=== PATIENT | male | born 1955 | race African-American/Black ===

== ENCOUNTER → 2017-04-04 | Outpatient (CLI) | payer OTHER ==
--- NOTE | 2017-04-04 11:50 | RADIOLOGY REPORT (SQ) ---
EXAM DESCRIPTION: MRI HEAD COMBO COMPLETED DATE/TIME: 04/04/2017 11:10 am REASON FOR STUDY: R51 HEADACHE R51 HEADACHE COMPARISON: None. TECHNIQUE: Multiplanar imaging includes noncontrasted T1, T2, FLAIR, diffusion with ADC map and post gadolinium contrast T1 sequences. Images stored on PACS. CONTRAST TYPE AND DOSE: 20 mL Multihance. RENAL FUNCTION: GFR > 60. LIMITATIONS: None. FINDINGS: ANATOMY: No developmental anomalies. Normal vascular flow voids. Pituitary fossa normal. CSF SPACES: Normal in size and contour. No hemorrhage. CEREBRUM: Multiple small foci of increased FLAIR/ T2 signal in the subcortical and deep periventricul ar white matter, likely minimal chronic small vessel ischemic change. Demyelinating disease could [place] this appearance. No MR evidence of acute ischemic change. Acute intracranial hemorrhage, mass effect or midline shift . POSTERIOR FOSSA: No abnormal brain parenchymal signal. No hemorrhage. No edema, masses, or mass effec t. Internal auditory canals, cerebellopontine angles, mastoids normal. No enhancing lesions. No abnor mal enhancement post contrast. DIFFUSION IMAGING: Negative for acute or subacute infarction. ORBITS: No masses. Globes normal. PARANASAL SINUSES: No fluid levels. Mucosa normal. OTHER: No other significant finding. IMPRESSION: Chronic small vessel ischemic change versus old demyelinating disease. No abnormal brain parenchymal enhancement worrisome for brain metastatic disease. No findings worris ome for acute ischemic change. EVIDENCE OF ACUTE STROKE: NO. TECHNICAL DOCUMENTATION: JOB ID: [id number] [employer]- All Rights Reserved
== END ==
LOC: RAD 10:12
PROVIDERS: ATTEND Internal Medicine Medical Oncology
DX: R51 Headache (principal)
CPT/HCPCS: 70553; A9577

== ENCOUNTER → 2017-04-11 | Outpatient (CLI) | payer OTHER ==
--- NOTE | 2017-04-12 16:30 | RADIOLOGY REPORT (SQ) ---
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 RADIONUCLIDE AND DOSE: 10.6 mCi F18 FDG The route of agent administration: Intravenous FASTING BLOOD SUGAR: 106 mg/dl CONTRAST TYPE AND DOSE: No CT contrast given. TECHNIQUE: Blood glucose level was verified. Above dose of FDG was injected intravenously. 2-D seg mented attenuation correction images were obtained from the base of the skull to the midthighs. Nonc ontrast CT images were obtained for attenuation correction and fusion with emission images. CT image s were performed without oral or intravenous contrast and are not sensitive for parenchymal lesions. A series of overlapping emission PET images were obtained. Images reviewed and manipulated at [facility] work station by the radiologist. Images stored on PACS. LIMITATIONS: None. FINDINGS: HEAD AND NECK: No areas of significant abnormal metabolic activity in the soft tissues of the head and neck. CHEST: Hypermetabolic station 7 node measuring 6.6 mean SUV and approximately 2.6 x 2.7 cm in diamete r. Previously reported 8.8 SUV and 2.9 x 1.8 cm. Hypermetabolic station 10 L node measuring 8.4 tiara n SUV and 2.3 cm in diameter, which is contiguous with hypermetabolic left lower lobe mass measuring 8.7 mean SUV and about 3.6 x 4.8 cm in AP by transverse diameter. Previously reported as left hilar node 5.2 SUV and 10 x 7 mm, and left lower lobe mass 12.9 SUV and 4.0 x 3.0 cm. ABDOMEN AND PELVIS: No areas of abnormal metabolic activity in the abdomen or pelvis. Expected physi ologic activity is present in the genitourinary system and bowel. PROXIMAL LOWER EXTREMITIES: No areas of abnormal metabolic activity in the soft tissues of the lower extremities. BONES: No abnormal metabolic activity in the visualized skeleton. ADDITIONAL CT FINDINGS: Hepatic cyst. OTHER: No other significant findings. IMPRESSION: Overall mild progression, although some differences in SUV and measurements may be due t o different hardware and scan technique at different facility. No new areas of hypermetabolic activi ty are identified. TECHNICAL DOCUMENTATION: JOB ID: [id number]- All Rights Reserved
== END ==
LOC: RAD 16:10
PROVIDERS: ATTEND Internal Medicine Medical Oncology
DX: C34.92 Malignant neoplasm of unspecified part of left bronchus or lung (principal)
CPT/HCPCS: 78815; A9552

== ENCOUNTER → 2017-06-20 | Outpatient (CLI) | payer OTHER ==
--- NOTE | 2017-06-20 13:04 | RADIOLOGY REPORT (SQ) ---
EXAM DESCRIPTION: VENOUS UNILATERAL LOWER COMPLETED DATE/TIME: 06/20/2017 12:27 pm REASON FOR STUDY: LLE PAIN M79.606 PAIN IN LEG, UNSPECIFIED COMPARISON: None. TECHNIQUE: Dynamic and static esposito scale and color images acquired of the left leg venous system. Se lected spectral images acquired with additional compression and augmentation maneuvers. The contralat eral common femoral vein and saphenofemoral junction were also imaged. Images stored on PACS. LIMITATIONS: None. FINDINGS: COMMON FEMORAL: Normal phasicity, compression and augmentation. No visualized echogenic ma terial on esposito scale. No defects on color images. FEMORAL: Thrombosis throughout femoral finding. POPLITEAL: Thrombosis. CALF VESSELS: Thrombosis of the posterior tibial, peroneal, and gastrocnemius veins. GSV and SSV: GSV patent. Thrombus in the SSV. ANY DEEP VENOUS INSUFFICIENCY: Not evaluated. ANY EVIDENCE OF POPLITEAL CYST: No. OTHER: No other significant finding. CONTRALATERAL COMMON FEMORAL VEIN AND SAPHENOFEMORAL JUNCTION: Normal phasicity, compression and augmentation. No visualized echogenic material on esposito scale. No de fects on color images. IMPRESSION: DIFFUSE DEEP VENOUS THROMBOSIS THROUGHOUT THE LEFT THIGH, KNEE, AND CALF. COMMENT: Preliminary report was called by the technologist to the referring clinician's office at th e time of patient visit. TECHNICAL DOCUMENTATION: JOB ID: [id number] [employer]- All Rights Reserved Reading location - IP/workstation name: [email or web address]
== END ==
LOC: SP 11:40
PROVIDERS: ATTEND Internal Medicine Medical Oncology
DX: I82.492 Acute embolism and thrombosis of other specified deep vein of left lower extremity (principal); M79.605 Pain in left leg
CPT/HCPCS: 93971

== ENCOUNTER → 2017-08-16 | Outpatient (CLI) | payer OTHER ==
--- NOTE | 2017-08-17 07:31 | RADIOLOGY REPORT (SQ) ---
EXAM DESCRIPTION: MRI LUMBAR SPINE COMBO COMPLETED DATE/TIME: 08/16/2017 9:59 pm REASON FOR STUDY: M79.606 PAIN IN LEG, UNSPECIFIED R53.1 WEAKNESS M79.606 PAIN IN LEG, UNSPECIFIED R53.1 WEAKNESS COMPARISON: PET-CT 04/11/2017 TECHNIQUE: Sagittal and Axial imaging includes T1, T1 post gadolinium, T2, STIR and gradient echo se quences. Coronal T2/HASTE imaging. CONTRAST TYPE AND DOSE: 15 mL Prohance. RENAL FUNCTION: GFR > 60. LIMITATIONS: None. FINDINGS: VISUALIZED UPPER ABDOMEN: The left adrenal gland measures 3.5 cm in length, worrisome for involvement with metastatic disease SEGMENTATION: No transitional anatomy. The lowest well-developed disc space is labeled L5-S1. ALIGNMENT: Minimal grade 1 anterolisthesis of L4 over L5 from bilateral facet arthropathy. VERTEBRAE: No compression deformities BONE MARROW: 1 cm diameter marrow signal abnormalities are scattered throughout the T12, L2, L3, L5, and S1 vertebral bodies worrisome for metastatic disease. No epidural tumor. Small metastatic lesio ns in the bilateral posterior innominate bones. DISC SIGNAL: Decreased T2 weighted intervertebral disc signal at L4-5 and L5-S1 POSTERIOR ELEMENTS: Generally intact. No pars defect evident. HARDWARE: None in the spine. CORD AND CONUS: Normal in size and signal intensity. Conus at the appropriate level. SOFT TISSUES: Left adrenal mass worrisome for metastatic disease T12-L1: No central or foraminal encroachment. L1-L2: Broad diffuse posterior disc bulging is present with moderate bilateral facet and ligament hyp ertrophy. Mild central canal stenosis best shown on axial image 4. Mild bilateral inferior foramina l narrowing. L2-L3: Broad diffuse posterior disc bulging is present with moderate bilateral facet and ligament hyp ertrophy. Mild central canal stenosis. Mild bilateral inferior foraminal narrowing without exiting L2 nerve root impingement. L3-L4: Broad diffuse posterior disc bulging is present with moderate bilateral facet and ligament hyp ertrophy. Mild central canal stenosis. Mild bilateral inferior foraminal narrowing without exiting L3 nerve root impingement. L4-L5: Moderate central canal stenosis results from broad diffuse posterior disc bulging, very bulky bilateral facet and ligament hypertrophy and grade 1 anterolisthesis of L4 over L5. There is mild bi lateral foraminal narrowing without exiting L4 nerve root impingement. L5-S1: Mild diffuse posterior disc bulging, moderate bilateral facet and ligament hypertrophy. No ce ntral stenosis. Moderate bilateral foraminal narrowing without exiting L5 nerve root impingement SACRUM: Visualized upper sacrum intact. ENHANCEMENT: Enhancing vertebral body and sacral/innominate bone lesions are identified. No abnormal conus or lumbar nerve root enhancement. OTHER: No other significant findings. IMPRESSION: Bony metastatic disease Multilevel central canal narrowing in the lumbar spine from diffuse degenerative changes TECHNICAL DOCUMENTATION: JOB ID: [id number] [employer]- All Rights Reserved Reading location - IP/workstation name: [email or web address]
--- NOTE | 2017-08-17 07:40 | RADIOLOGY REPORT (SQ) ---
EXAM DESCRIPTION: MRI PELVIS COMBO COMPLETED DATE/TIME: 08/16/2017 9:59 pm REASON FOR STUDY: M79.606 M79.606 PAIN IN LEG, UNSPECIFIED R53.1 WEAKNESS CONTRAST TYPE AND DOSE: 15 mL Prohance. RENAL FUNCTION: Estimated GFR 52 LIMITATIONS: None. FINDINGS: Bony metastatic lesions are present, with lytic destruction of normal bone with avid contr ast enhancement. The largest of these metastatic lesions is in the posterior and medial aspect left acetabulum, 7 cm craniocaudad by 5 cm transverse by 4 cm AP. This lesion is best shown on coronal ST IR images 11 through 17. Tumor breakthrough along the posterior bony acetabulum is present on axial image 20 through 23. The next largest lytic lesion is in the left innominate bone adjacent to the inferior 3rd SI joint, m easuring 3.5 x 2 cm in size. Other smaller bony metastatic lesions are seen scattered throughout the lower lumbar spine, sacrum, r ight and left innominate bones, bilateral proximal femurs. An enhancing soft tissue 3 x 1.5 cm nodule is present in the left obturator externus muscle best show n on axial image 32 and coronal image 11. This is worrisome for a soft tissue metastatic lesion. No adenopathy. No free pelvic fluid. Pelvic organs unremarkable. IMPRESSION: Multiple enhancing bony metastatic lesions, the largest is in the left posterior and med ial acetabulum, 7 x 5 x 4 cm in size. TECHNICAL DOCUMENTATION: JOB ID: [id number] [employer]- All Rights Reserved COMPARISON: None. MRI lumbar spine without and with contrast same date PET-CT 04/11/2017 TECHNIQUE: Multiplanar multisequence imaging without and with contrast including axial, sagittal and coronal fat sat T2, axial and coronal T1, axial and coronal T1 post contrast. Reading location - IP/workstation name: [email or web address]
== END ==
LOC: RAD 17:52
PROVIDERS: ATTEND Internal Medicine Medical Oncology
DX: M54.9 Dorsalgia, unspecified (principal); R29.898 Other symptoms and signs involving the musculoskeletal system
CPT/HCPCS: 72158; 72197; 82565

== ENCOUNTER → 2017-08-21 | Outpatient (CLI) | payer OTHER ==
--- NOTE | 2017-08-21 16:44 | RADIOLOGY REPORT (SQ) ---
EXAM DESCRIPTION: NM WHOLE BODY BONE SCAN COMPLETED DATE/TIME: 08/21/2017 3:16 pm REASON FOR STUDY: C79.51 SECONDARY MALIGNANT NEOPLASM OF BONE C79.51 SECONDARY MALIGNANT NEOPLASM O F BONE COMPARISON: MR pelvis 08/16/2017 MR lumbar spine 08/16/2017 PET-CT 04/11/2017 RADIONUCLIDE AND DOSE: 20 millicuries Tc99m HDP. The route of agent administration: Intravenous. ADDITIONAL DRUGS AND DOSES: None. TECHNIQUE: Routine delayed images at 3 hours post radionuclide injection acquired of the bony skelet on including anterior and posterior whole-body projections and additional focused images as needed. LIMITATIONS: None. FINDINGS: BONES: Focal increased uptake is seen in the region of the left sacroiliac joint. Focal i ncreased uptake is present in the right patella. Abnormal findings seen on the MRI of the pelvis and MRI of the lumbar spine are not manifest on this scan as increased uptake. KIDNEYS: Symmetric excretion without obstruction. OTHER: No other significant finding. IMPRESSION: A couple small areas of uptake is seen as described. These may be degenerative in natur e. Activity on bone scan does not reflect the disease seen on a prior MRIs from August 16. COMMENT: Quality measure 147: Current bone scan is compared with any available plain radiographs, p rior bone scans, and CT/MRI. TECHNICAL DOCUMENTATION: JOB ID: [id number] [email or web address]- All Rights Reserved Reading location - IP/workstation name: [email or web address]
== END ==
LOC: RAD 10:36
PROVIDERS: ATTEND Radiology Radiation Oncology
DX: C34.32 Malignant neoplasm of lower lobe, left bronchus or lung (principal); C77.1 Secondary and unspecified malignant neoplasm of intrathoracic lymph nodes
CPT/HCPCS: 78306; A9561

== ENCOUNTER 2017-09-18 13:15 | Inpatient (IN) | payer OTHER ==
[2017-09-18] MEDS ORDERED: ONDANSETRON HCL INJ/PF 4 MG/2 ML SDV IV ONE (14:01)
[2017-09-18] MEDS ORDERED: RINGERS SOLUTION,LACTATED 1,000 ML IV ONE (14:03)
[2017-09-18 14:27] LABS: ABSOLUTE LYMPHOCYTES (AUTO) 0.4 10^3/uL (0.5-4.7); ABSOLUTE MONOCYTES (AUTO) 0.1 10^3/uL (0.1-1.4); ABSOLUTE NEUT (AUTO) 7.5 10^3/uL (1.7-8.2); BASOPHILS % (AUTO) 0.1 % (0-2); EOSINOPHILS % (AUTO) 0.3 % (0-6); HEMATOCRIT 29.9 % (37.9-51.0); HEMOGLOBIN 9.9 g/dL (13.5-17.0); LYMPHOCYTES % (AUTO) 5.1 % (13-45); MEAN CORPUSCULAR HEMOGLOBIN 25.4 pg (27.0-33.4); MEAN CORPUSCULAR HGB CONC 33.1 g/dL (32.0-36.0); MEAN CORPUSCULAR VOLUME 77 fl (80-97); PLATELET COUNT 172 10^3/uL (150-450); RED CELL DISTRIBUTION WIDTH 18.7 % (11.5-14.0); SEGMENTED NEUTROPHILS % (AUTO) 93.5 % (42-78); TOTAL CELLS COUNTED % (AUTO) 100 %; WHITE BLOOD COUNT 8.1 10^3/uL (4.0-10.5)
[2017-09-18 14:42] LABS: ALANINE AMINOTRANSFERASE 34 U/L (21-72); ALBUMIN 3.3 g/dL (3.5-5.0); ALKALINE PHOSPHATASE 158 U/L (38-126); ANION GAP 13 (5-19); ASPARTATE AMINO TRANSFERASE 31 U/L (17-59); BILIRUBIN,DIRECT 0.5 mg/dL (0.0-0.4); BILIRUBIN,TOTAL 0.9 mg/dL (0.2-1.3); BLOOD UREA NITROGEN 46 mg/dL (7-20); CALCIUM 8.3 mg/dL (8.4-10.2); CARBON DIOXIDE 18 mmol/L (22-30); CHLORIDE 107 mmol/L (98-107); GLUCOSE 164 mg/dL (75-110); POTASSIUM 5.4 mmol/L (3.6-5.0); SODIUM 138.2 mmol/L (137-145); TOTAL PROTEIN 6.9 g/dL (6.3-8.2)
[2017-09-18 14:51] LABS: INTERNATIONAL RATION (INR) 1.19; PROTHROMBIN TIME 15.8 SEC (11.4-15.4)
--- NOTE | 2017-09-18 15:17 | RADIOLOGY REPORT (SQ) ---
EXAM DESCRIPTION: ACUTE ABDOMEN SERIES COMPLETED DATE/TIME: 09/18/2017 2:49 pm REASON FOR STUDY: Abdominal pain COMPARISON: CT scan 04/11/2017 NUMBER OF VIEWS: Three views. TECHNIQUE: Frontal chest, supine abdomen and upright/decubitus abdomen radiographic images acquired. LIMITATIONS: None. FINDINGS: CHEST: Interval development of a large right effusion and smaller left effusion. Compress rashaun atelectasis at the right base. No free air. FREE AIR: None. No abnormal gas collections. BOWEL GAS PATTERN: Nonobstructive pattern. No dilated loops or air fluid levels. CALCIFICATIONS: No suspicious calcifications. HARDWARE: None in the abdomen. SOFT TISSUES: No gross mass or suggestion of organomegaly. BONES: No acute fracture. No worrisome bone lesions. OTHER: No other significant finding. IMPRESSION: Interval development of a large right effusion and smaller left effusion. Bilateral com pressive atelectasis of the lungs. No radiographic evidence for acute abdominal disease. TECHNICAL DOCUMENTATION: JOB ID: [id number] [employer]- All Rights Reserved Reading location - IP/workstation name: [email or web address]
--- NOTE | 2017-09-18 16:06 | ER Document Report ---
ED General - General Chief Complaint: Loose Stools Stated Complaint: DIARRHEA Time Seen by Provider: 09/18/17 14:00 Mode of Arrival: Ambulatory Information source: Patient Notes: Chief complaint: General malaise 62 years old male presents today with general malaise unable to eat History of complain:( obtained from----patient) anything feeling weak and fatigued, had nausea vomited a couple of times had loose bowel movement a few times. And exertional shortness of breath. He had his chemotherapy done a week ago. Denies any fever chills or other constitutional symptoms Onset: Last few days Duration: Gradual Severity: Moderate to severe Quality: General malaise Context: Status post chemotherapy Exacerbating factor and relieving factors: Exertion REVIEW OF SYSTEMS: CONSTITUTIONAL : Denies fever, chills, or sweats. Denies recent illness. EENT: Denies eye, ear, throat, or mouth pain or symptoms. Denies nasal or sinus congestion or discharge. Denies throat, tongue, or mouth swelling or difficulty swallowing. CARDIOVASCULAR: Denies chest pain. Denies palpitations or racing or irregular heart beat. Denies ankle edema. RESPIRATORY: Denies cough, cold, or chest congestion. GASTROINTESTINAL: Denies distention. Denies nausea, vomiting, or diarrhea. Denies blood in vomitus, stools, or per rectum. Denies black, tarry stools. Denies constipation. GENITOURINARY: Denies difficulty urinating, painful urination, burning, frequency, blood in urine, or discharge. FEMALE GENITOURINARY: Denies vaginal bleeding, heavy or abnormal periods, irregular periods. Denies vaginal discharge or odor. MUSCULOSKELETAL: Denies back or neck pain or stiffness. Denies joint pain or swelling. SKIN: Denies rash, lesions or sores. HEMATOLOGIC : Denies easy bruising or bleeding. LYMPHATIC: Denies swollen, enlarged glands. NEUROLOGICAL: Denies confusion or altered mental status. Denies passing out or loss of consciousness. Denies dizziness or lightheadedness. Denies headache. Denies weakness or paralysis or loss of use of either side. Denies problems with gait or speech. Denies sensory loss, numbness, or tingling. Denies seizures. PSYCHIATRIC: Denies anxiety or stress. Denies depression, suicidal ideation, or homicidal ideation. ALL OTHER SYSTEMS REVIEWED AND NEGATIVE. PHYSICAL EXAMINATION: GENERAL: Well-appearing, well-nourished and in mild to moderate acute distress. Cachexia of malignancy HEAD: Atraumatic, normocephalic. EYES: Pupils equal round and reactive to light, extraocular movements intact, conjunctiva are normal. ENT: Nares patent, oropharynx clear without exudates. Moist mucous membranes. NECK: Normal range of motion, supple without lymphadenopathy LUNGS: Bilaterally decreased breath sounds, right more than the left. Dullness over the lower lung field HEART: Regular rate and rhythm without murmurs ABDOMEN: Soft, nontender, nondistended abdomen. No guarding, no rebound. No masses appreciated. Examination of genitals-deferred Musculoskeletal: Normal range of motion, no pitting or edema. No cyanosis. NEUROLOGICAL: Cranial nerves grossly intact. Normal speech, normal gait. Normal sensory, motor exams PSYCH: Normal mood, normal affect. SKIN: Warm, Dry, normal turgor, no rashes or lesions noted. Dictation was performed using [employer] voice recognition software TRAVEL OUTSIDE OF THE [place] IN LAST 30 DAYS: No - HPI Patient complains to provider of: Dictated Past Medical History - Social History Smoking Status: Former Smoker Cigarette use (# per day): No Chew tobacco use (# tins/day): No Smoking Education Provided: No Frequency of alcohol use: Rare Drug Abuse: None Family History: Reviewed & Not Pertinent Review of Systems - Review of Systems Notes: Dictated Physical Exam - Vital signs Vitals: Resp BP Pulse Ox 34 H 122/81 95 09/18/17 13:25 09/18/17 13:25 09/18/17 13:25 - Notes Notes: Dictated Course - Re-evaluation Re-evalutation: 09/18/17 16:05 Case was discussed with oncologist On-call surgeon Hospitalist and currently being admitted - Vital Signs Vital signs: Temp Pulse Resp BP Pulse Ox 34 H 122/81 95 09/18/17 13:25 09/18/17 13:25 09/18/17 13:25 - Laboratory Result Diagrams: 09/18/17 13:00 09/18/17 13:00 Laboratory results interpreted by me: 09/18/17 09/18/17 09/18/17 13:00 13:00 13:00 RBC 3.90 L Hgb 9.9 L Hct 29.9 L MCV 77 L MCH 25.4 L RDW 18.7 H Seg Neutrophils % 93.5 H Lymphocytes % 5.1 L Monocytes % 1.0 L Absolute Lymphocytes 0.4 L PT 15.8 H Potassium 5.4 H Carbon Dioxide 18 L BUN 46 H Creatinine 1.48 H Est GFR ( Amer) 58 L Est GFR (Non-Af Amer) 48 L Glucose 164 H Calcium 8.3 L Direct Bilirubin 0.5 H Alkaline Phosphatase 158 H Albumin 3.3 L - Diagnostic Test Radiology reviewed: Reports reviewed - Abdominal series reported by radiologist as bilateral pleural effusion right more than the left - EKG Interpretation by Ia EKG shows normal: Sinus rhythm - Electrocardiogram shows sinus rhythm at the rate of 58 bpm APCs, otherwise no acute ST elevation ST depression T-wave inversion noted. Normal axis Discharge - Discharge Clinical Impression: Bilateral pleural effusion, Small cell lung cancer, Dehydration Condition: Fair Disposition: ADMITTED INPATIENT Admitting Provider: Hospitalist Unit Admitted: Telemetry Referrals: ALEXANDER PINTO MD [Primary Care Provider] - Follow up as needed
[2017-09-18] MEDS: NORMAL SALINE 1000 ML 1,000 ML IV PRN ×3 (16:30→22:11)
--- NOTE | 2017-09-18 19:08 | PDOC H&P ---
History of Present Illness Admission Date/PCP: 09/18/17 16:04 Patient complains of: Weakness, anorexia, diarrhea History of Present Illness: STEVAN WHYTE is a 62 year old male with history of lung cancer status post chemotherapy, last dose about a week ago. Patient is also status post radiation therapy. He presented to the ED with about 1 week of malaise, anorexia. He states anything he eats runs through him. He has nausea, but no vomiting. His stools are loose but no blood. Denies sick contacts. Denies abdominal pain. He has also had problems with shortness of breath. Evaluation in the ED significant for acute renal failure, and bilateral pleural effusions worse on the right. ED doctor spoke to patient's oncologist who recommended admission for thoracentesis, further evaluation on Monday. Patient denies chest pain, no fever or chills. Past Medical History Malignancy Medical History: Reports: Lung Cancer Social History Smoking Status: Former Smoker Family History Family History: Reviewed & Not Pertinent Parental Family History Reviewed: Yes Children Family History Reviewed: Yes Sibling(s) Family History Reviewed.: Yes Medication/Allergy Home Medications: Dexamethasone [Decadron 4 Mg Tablet] 4 mg PO TID 09/18/17 Enoxaparin Sodium [Lovenox Inj 100 mg/1 ml Disp.syrin] 100 mg SUBCUT Q12 Folic Acid 0.4 mg PO DAILY 09/18/17 Lorazepam [Ativan 0.5 mg Tablet] 0.5 mg PO Q8HP PRN 09/18/17 Multivitamin [Tab-A-Altaf] 1 each PO DAILY 09/18/17 Omeprazole 40 mg PO DAILY 09/18/17 Ondansetron HCl [Zofran 8 mg Tablet] 8 mg PO Q8 09/18/17 Oxycodone HCl/Acetaminophen [Percocet 10-325 Mg Tablet] 1 each PO Q6HP PRN 09/18 Tramadol HCl [Ultram 50 mg Tablet] 50 mg PO Q8HP PRN 09/18/17 Allergies/Adverse Reactions: No Known Allergies Allergy (Unverified 09/18/17 21:05) Review of Systems Review of Systems: CONSTITUTIONAL : Fever, chills -- No; fatigue -- YES EENT: Denies eye, ear, throat, or mouth pain or symptoms. Denies nasal or sinus congestion or discharge. Denies throat, tongue, or mouth swelling or difficulty swallowing. CARDIOVASCULAR: Denies chest pain. No racing heart RESPIRATORY: Denies cough, HAS shortness of breath, difficulty breathing. GASTROINTESTINAL: Denies abdominal pain or distention. Denies nausea, vomiting , or diarrhea. No rectal bleeding. GENITOURINARY: Urinary symptoms -- no. MUSCULOSKELETAL: Has generalized weakness SKIN: Denies rash, lesions or sores. HEMATOLOGIC : Denies easy bruising or bleeding. LYMPHATIC: Denies swollen, enlarged glands. NEUROLOGICAL: New weakness, headaches, slured speach - No --weaknesses generalized PSYCHIATRIC: Changes anxiety or stress, depression, suicidal ideation, or homicidal ideation -- No ALL OTHER SYSTEMS REVIEWED AND NEGATIVE. Physical Exam Vital Signs: Temp Pulse Resp BP Pulse Ox 34 H 122/81 95 09/18/17 13:25 09/18/17 13:25 09/18/17 13:25 GENERAL: Chronically ill appearing male, in no acute distress HEENT: Normocephalic/atraumatic NECK supple, no JVD CARDIOVASCULAR: RRR, normal S1-S2 LUNGS: Decreased breath sounds bases bilaterally ABDOMEN: Soft, NT, NL bowel sounds EXTREMITIES: No edema, clubbing, cyanosis NEUROLOGICAL: Alert, oriented x 3, no lateralizing weakness Results Impressions: Acute Abdomen Series 09/18/17 14:02 IMPRESSION: Interval development of a large right effusion and smaller left effusion. Bilateral compressive atelectasis of the lungs. No radiographic evidence for acute abdominal disease. Assessment & Plan - Diagnosis (1) Bilateral pleural effusion Is this a current diagnosis for this admission?: Yes Plan: Was on the right. Will obtain CT of the chest to further evaluate. Please consider ultrasound-guided thoracentesis depending on CT results. We will also check echocardiogram to rule out heart failure, especially as patient will receive IV fluids for anorexia and acute kidney injury. (2) ROSETTE (acute kidney injury) Is this a current diagnosis for this admission?: Yes Plan: Likely secondary to dehydration. Will treat with gentle IV fluid with normal saline at 75 mL/h as patient with poor p.o. Monitor closely. (3) Dehydration Is this a current diagnosis for this admission?: Yes Plan: IV fluids as an ROSETTE. (4) Small cell lung cancer Is this a current diagnosis for this admission?: Yes Plan: Consider consulting his oncologist if any issues/concerns. (5) Loose stools Is this a current diagnosis for this admission?: Yes Plan: We will check stool studies for infection, C. difficile - Inpatient Certification Medical Necessity: Significant Comorbidiites Make Outpatient Treatment Too Risky , Need For IV Fluids, Need For Continuous Telemetry Monitoring
[2017-09-18 19:27] LABS: APPEARANCE,URINE SLIGHTLY-CLOUDY; BILIRUBIN,URINE NEGATIVE (NEGATIVE); COLOR,URINE YELLOW; GLUCOSE, URINE NEGATIVE (NEGATIVE); KETONES,URINE NEGATIVE (NEGATIVE); LEUKOCYTE ESTERASE,URINE NEGATIVE (NEGATIVE); NITRITE,URINE NEGATIVE (NEGATIVE); PROTEIN,URINE 30 mg/dL (NEGATIVE)
[2017-09-18] MEDS ORDERED: TRAMADOL HCL 50 MG TABLET PO PRN (21:28)
[2017-09-18] MEDS ORDERED: LORAZEPAM 0.5 MG TABLET PO PRN (21:28)
[2017-09-18] MEDS ORDERED: (PENDING PHARMACY ID) (Enoxaparin Sodium 100 MG) SUBCUT SCH (22:00)
[2017-09-18] MEDS: ENOXAPARIN SODIUM INJ 80 MG/0.8 ML DISP.SYRIN SUBCUT SCH (22:11)
[2017-09-18] MEDS: ONDANSETRON HCL 8 MG TABLET PO SCH (22:11)
[2017-09-18] MEDS ORDERED: OXYCODONE-ACETAMINOPHEN 5-325 MG TABLET PO PRN (22:15)
[2017-09-18] MEDS ORDERED: OXYCODONE HCL IR 5 MG TABLET PO PRN (22:15)
[2017-09-19] MEDS: ONDANSETRON HCL 8 MG TABLET PO SCH ×3 (05:03→21:08)
[2017-09-19 05:25] LABS: ABSOLUTE LYMPHOCYTES (AUTO) 0.3 10^3/uL (0.5-4.7); ABSOLUTE NEUT (AUTO) 4.8 10^3/uL (1.7-8.2); BASOPHILS % (AUTO) 0.8 % (0-2); EOSINOPHILS % (AUTO) 0.1 % (0-6); HEMATOCRIT 26.5 % (37.9-51.0); HEMOGLOBIN 8.8 g/dL (13.5-17.0); LYMPHOCYTES % (AUTO) 6.2 % (13-45); MEAN CORPUSCULAR HEMOGLOBIN 25.4 pg (27.0-33.4); MEAN CORPUSCULAR HGB CONC 33.2 g/dL (32.0-36.0); MEAN CORPUSCULAR VOLUME 76 fl (80-97); MONOCYTES % (AUTO) 0.9 % (3-13); PLATELET COUNT 114 10^3/uL (150-450); RED BLOOD COUNT 3.47 10^6/uL (4.35-5.55); RED CELL DISTRIBUTION WIDTH 18.6 % (11.5-14.0); TOTAL CELLS COUNTED % (AUTO) 100 %; WHITE BLOOD COUNT 5.2 10^3/uL (4.0-10.5)
[2017-09-19 07:36] LABS: ALANINE AMINOTRANSFERASE 39 U/L (21-72); ALBUMIN 2.8 g/dL (3.5-5.0); ALKALINE PHOSPHATASE 133 U/L (38-126); ANION GAP 11 (5-19); ASPARTATE AMINO TRANSFERASE 22 U/L (17-59); BILIRUBIN,DIRECT 0.3 mg/dL (0.0-0.4); BILIRUBIN,TOTAL 0.7 mg/dL (0.2-1.3); BLOOD UREA NITROGEN 40 mg/dL (7-20); CALCIUM 7.4 mg/dL (8.4-10.2); CARBON DIOXIDE 18 mmol/L (22-30); CHLORIDE 109 mmol/L (98-107); GLUCOSE 97 mg/dL (75-110); POTASSIUM 5.7 mmol/L (3.6-5.0); SODIUM 137.5 mmol/L (137-145); TOTAL PROTEIN 5.5 g/dL (6.3-8.2)
--- NOTE | 2017-09-19 09:12 | RADIOLOGY REPORT (SQ) ---
EXAM DESCRIPTION: CT CHEST WITHOUT COMPLETED DATE/TIME: 09/19/2017 8:29 am REASON FOR STUDY: Bilateral pleural effusion, lung ca COMPARISON: None. Correlation: PET-CT 04/11/2017. TECHNIQUE: CT scan performed of the chest without intravenous contrast. Images reviewed with lung, soft tissue and bone windows. Reconstructed coronal and sagittal MPR images reviewed. All images st ored on PACS. All CT scanners at this facility use dose modulation, iterative reconstruction, and/or weight based d osing when appropriate to reduce radiation dose to as low as reasonably achievable (ALARA). [facility]: Dose Right [facility]: CareDose [facility]: Dose Right [facility]: Teradose 4D [facility]: Scratch Wireless RADIATION DOSE: CT Rad equipment meets quality standard of care and radiation dose reduction techniq ues were employed. CTDIvol: 6.9 mGy. DLP: 251 mGy-cm. mGy. LIMITATIONS: No technical limitations. FINDINGS: LUNGS AND PLEURA: Previously described left lower lobe mass is mostly obscured by adjacent pleural effusion volume estimated less than 500 cc. There is a small loculated component posteriorl y in the left upper lung. Similar findings on the right with a slightly larger volume of pleural eff usion, but similar small loculated component in the upper lung. HILAR AND MEDIASTINAL STRUCTURES: Stable. HEART AND VASCULAR STRUCTURES: No aneurysm. No pericardial effusion. UPPER ABDOMEN: No significant findings. Limited exam. THYROID AND OTHER SOFT TISSUES: No masses. No adenopathy. BONES: No significant finding. HARDWARE: None in the chest. OTHER: No other significant findings. IMPRESSION: Known left lower lobe mass and satellite nodules. Interval development of bilateral ple ural effusions with loculated components superiorly. TECHNICAL DOCUMENTATION: JOB ID: [id number] Quality ID # [id number]: Final reports with documentation of one or more dose reduction techniques (e.g., Au tomated exposure control, adjustment of the mA and/or kV according to patient size, use of iterative reconstruction technique) 2010 [employer]- All Rights Reserved Reading location - IP/workstation name: [email or web address]
[2017-09-19] MEDS: ENOXAPARIN SODIUM INJ 80 MG/0.8 ML DISP.SYRIN SUBCUT SCH ×2 (09:19→21:07)
[2017-09-19] MEDS ORDERED: SODIUM POLYSTYRENE SULFONATE 15 GM/60 ML PO ONE (09:19)
[2017-09-19] MEDS: LANSOPRAZOLE 30 MG TAB.RAP.DR PO SCH (09:20)
[2017-09-19] MEDS: MULTIVITAMIN TABLET PO SCH (09:20)
[2017-09-19] MEDS: DEXAMETHASONE 4 MG TABLET PO SCH ×3 (09:27→18:46)
[2017-09-19] MEDS ORDERED: (PENDING PHARMACY ID) (Folic Acid [Folic Acid] 0.4 MG) PO SCH (10:00)
[2017-09-19] MEDS: NORMAL SALINE 1000 ML 1,000 ML IV PRN (11:15)
--- NOTE | 2017-09-19 19:39 | PDOC PROGRESS REPORT ---
Subjective Progress Note for:: 09/19/17 Subjective:: No adverse events overnight. No new complaints. He said he still gets a little short winded whenever he tries to get up go to the bathroom. He said he gets short winded if he sits up for too long without support. No fevers. No cough. Reason For Visit: LARGE PLEURAL EFFUSION, LUNG CANCER Physical Exam Vital Signs: Temp Pulse Resp BP Pulse Ox 97.7 F 104 H 16 114/74 91 L 09/19/17 16:26 09/19/17 19:00 09/19/17 16:26 09/19/17 16:26 09/19/17 16:26 Intake & Output 09/18/17 09/19/17 09/20/17 06:59 06:59 06:59 Intake Total 1000 1602 Output Total 300 250 Balance 700 1352 Weight 72.2 kg General appearance: PRESENT: no acute distress, cooperative, disheveled Respiratory exam: PRESENT: decreased breath sounds - Bibasilar, unlabored. ABSENT: rales, rhonchi, tachypnea, wheezes Cardiovascular exam: PRESENT: RRR. ABSENT: systolic murmur GI/Abdominal exam: PRESENT: normal bowel sounds, soft. ABSENT: guarding, rebound, tenderness Extremities exam: ABSENT: pedal edema Musculoskeletal exam: PRESENT: ambulatory, normal inspection. ABSENT: deformity Neurological exam: PRESENT: alert, awake, oriented to person, oriented to place , oriented to time Results Laboratory Results: 09/19/17 03:59 09/19/17 07:00 09/19/17 09/19/17 09/19/17 03:59 03:59 07:00 WBC 5.2 RBC 3.47 L Hgb 8.8 L Hct 26.5 L MCV 76 L MCH 25.4 L MCHC 33.2 RDW 18.6 H Plt Count 114 L Seg Neutrophils % 92.0 H Lymphocytes % 6.2 L Monocytes % 0.9 L Eosinophils % 0.1 Basophils % 0.8 Absolute Neutrophils 4.8 Absolute Lymphocytes 0.3 L Absolute Monocytes 0.0 L Absolute Eosinophils 0.0 Absolute Basophils 0.0 Sodium Cancelled 137.5 Potassium Cancelled 5.7 H Chloride Cancelled 109 H Carbon Dioxide Cancelled 18 L Anion Gap Cancelled 11 BUN Cancelled 40 H Creatinine Cancelled 1.19 Est GFR ( Amer) Cancelled > 60 Est GFR (Non-Af Amer) Cancelled > 60 Glucose Cancelled 97 Calcium Cancelled 7.4 L Total Bilirubin Cancelled 0.7 AST Cancelled 22 ALT Cancelled 39 Alkaline Phosphatase Cancelled 133 H Total Protein Cancelled 5.5 L Albumin Cancelled 2.8 L Impressions: Acute Abdomen Series 09/18/17 14:02 IMPRESSION: Interval development of a large right effusion and smaller left effusion. Bilateral compressive atelectasis of the lungs. No radiographic evidence for acute abdominal disease. Chest CT 09/19/17 07:00 IMPRESSION: Known left lower lobe mass and satellite nodules. Interval development of bilateral pleural effusions with loculated components superiorly. Assessment & Plan - Diagnosis (1) Bilateral pleural effusion Is this a current diagnosis for this admission?: Yes Plan: Effusions are small, and there are loculated components. I do not know if training them is going to improve his respiratory status at this point. Will talk with his oncologist to see what they recommend, but with less than 500 cc on the right pleural effusion, which is the larger of the 2, I do not know that draining them is going to give him much breathing relief. (2) Small cell lung cancer Is this a current diagnosis for this admission?: Yes Plan: He recently finished chemo. It has affected his appetite and his bowels. Supportive care only at this point. - Time Time Spent with patient: 15-24 minutes
[2017-09-20] MEDS: NORMAL SALINE 1000 ML 1,000 ML IV PRN ×2 (00:47→13:24)
[2017-09-20] MEDS: ONDANSETRON HCL 8 MG TABLET PO SCH ×3 (05:36→22:42)
--- NOTE | 2017-09-20 09:35 | XCELERA REPORT ---
[address] [address] Transthoracic Echocardiogram Report Name: STEVAN WHYTE Age: 62 yrs Gender: Male : 1955 Patient Status: Inpatient Patient Location: [address] [place] [address] Study Date: 09/19/2017 10:15 AM Procedure: A complete two-dimensional transthoracic echocardiogram was performed (2D, M-mode, spectral and color flow Doppler). The study was technically adequate with some images being suboptimal in quality. Reason For Study: Bilateral pleural effusion Ordering Physician: NAHUM BONILLA Performed By: Jesusita Kennedy Interpretation Summary The left ventricular ejection fraction is normal. There is borderline concentric left ventricular hypertrophy. The left ventricle is grossly normal size. Doppler measurements suggest pseudonormalized left ventricular relaxation, which is associated with grade II/IV or mild to moderate diastolic dysfunction Wall motion cannot be accurately commented on, but no definite regional wall motion abnormalities noted. The right ventricle is grossly normal size. The right ventricular systolic function is normal. Borderline left atrial enlargement. The right atrium is normal in size There is a trace to mild amount of mitral regurgitation There is no mitral valve stenosis. No aortic regurgitation is present. There is no aortic valve stenosis There is a trace or physiologic amount of tricuspid regurgitation There is no tricuspid stenosis. The aortic root is not well visualized but is probably normal size. The inferior vena cava was not well visualized There is no pericardial effusion. Small right pleural effusion. REC CXR MMode/2D Measurements & Calculations RVDd: 3.4 cm LVIDd: 4.8 cmFS: 36.9 % Ao root diam: 3.5 cm IVSd: 0.98 cm LVIDs: 3.0 cmEDV(Teich): 106.0 ml Ao root area: 9.4 cm2 LVPWd: 1.2 cmESV(Teich): 35.3 ml EF(Teich): 66.7 % LVOT diam: 1.8 cm LVOT area: 2.6 cm2 Doppler Measurements & Calculations MV E max candelaria: MV dec slope: Ao V2 max: LV V1 max P.4 cm/sec 115.1 cm/sec 2.2 mmHg MV A max candelaria: 902.5 cm/sec2 Ao max PG: LV V1 max: 35.3 cm/sec MV dec time: 5.3 mmHg 74.1 cm/sec MV E/A: 2.3 0.09 sec OMAR(V,D): 1.7 cm2 PA V2 max: 99.6 cm/sec PA max P.0 mmHg Left Ventricle The left ventricle is grossly normal size. There is borderline concentric left ventricular hypertrophy. The left ventricular ejection fraction is normal. Doppler measurements suggest pseudonormalized left ventricular relaxation, which is associated with grade II/IV or mild to moderate diastolic dysfunction. Wall motion cannot be accurately commented on, but no definite regional wall motion abnormalities noted. Right Ventricle The right ventricle is grossly normal size. There is normal right ventricular wall thickness. The right ventricular systolic function is normal. Atria The right atrium is normal in size. Borderline left atrial enlargement. Interarterial septum not well visualized and not well dopplered. Cannot comment on ASD/PFO presence. Mitral Valve The mitral valve leaflets are sclerotic, but show no functional abnormalities. There is no mitral valve stenosis. There is a trace to mild amount of mitral regurgitation. Aortic Valve The aortic valve is not well visualized secondary to technical limitations. There is no aortic valve stenosis. No aortic regurgitation is present. Tricuspid Valve The tricuspid valve is not well visualized secondary to technical limitations. There is no tricuspid stenosis. There is a trace or physiologic amount of tricuspid regurgitation. Pulmonic Valve The pulmonic valve is not well visualized. Great Vessels The aortic root is not well visualized but is probably normal size. The inferior vena cava was not well visualized. Effusions There is no pericardial effusion. Small right pleural effusion. : NAHUM BONILLA > Niraj Gonzalez
[2017-09-20] MEDS: ENOXAPARIN SODIUM INJ 80 MG/0.8 ML DISP.SYRIN SUBCUT SCH ×2 (10:57→22:42)
[2017-09-20] MEDS: FOLIC ACID 1 MG TABLET PO SCH (10:57)
[2017-09-20] MEDS: LANSOPRAZOLE 30 MG TAB.RAP.DR PO SCH (10:57)
[2017-09-20] MEDS: MULTIVITAMIN TABLET PO SCH (10:57)
[2017-09-20] MEDS: DEXAMETHASONE 4 MG TABLET PO SCH ×3 (10:58→17:17)
--- NOTE | 2017-09-20 20:09 | PDOC PROGRESS REPORT ---
Subjective Progress Note for:: 09/20/17 Subjective:: No adverse events overnight. No new complaints. He said he still gets a little short winded whenever he tries to get up go to the bathroom. He said he gets short winded if he sits up for too long without support. No fevers. No cough. He was started on oxygen overnight and said he feels a little bit better with it on. Reason For Visit: LARGE PLEURAL EFFUSION, LUNG CANCER Physical Exam Vital Signs: Temp Pulse Resp BP Pulse Ox 97.1 F 97 18 142/82 H 95 09/20/17 15:06 09/20/17 15:06 09/20/17 15:06 09/20/17 15:06 09/20/17 15:06 Intake & Output 09/19/17 09/20/17 09/21/17 06:59 06:59 06:59 Intake Total 1000 3070 1656 Output Total 300 800 325 Balance 700 2270 1331 Weight 72.2 kg 72.2 kg General appearance: PRESENT: no acute distress, cooperative, disheveled Respiratory exam: PRESENT: decreased breath sounds, unlabored. ABSENT: rales, rhonchi, tachypnea, wheezes Cardiovascular exam: PRESENT: RRR. ABSENT: systolic murmur GI/Abdominal exam: PRESENT: normal bowel sounds, soft. ABSENT: guarding, rebound, tenderness Extremities exam: ABSENT: clubbing, pedal edema Musculoskeletal exam: PRESENT: ambulatory, normal inspection. ABSENT: deformity Neurological exam: PRESENT: alert, awake, oriented to person, oriented to place , oriented to time Psychiatric exam: PRESENT: appropriate affect, normal mood Skin exam: PRESENT: dry, warm Results Laboratory Results: 09/19/17 03:59 09/19/17 07:00 Impressions: Acute Abdomen Series 09/18/17 14:02 IMPRESSION: Interval development of a large right effusion and smaller left effusion. Bilateral compressive atelectasis of the lungs. No radiographic evidence for acute abdominal disease. Chest CT 09/19/17 07:00 IMPRESSION: Known left lower lobe mass and satellite nodules. Interval development of bilateral pleural effusions with loculated components superiorly. Assessment & Plan - Diagnosis (1) Bilateral pleural effusion Is this a current diagnosis for this admission?: Yes Plan: Effusions are small, and there are loculated components. I do not know if training them is going to improve his respiratory status at this point. Will talk with his oncologist to see what they recommend, but with less than 500 cc on the right pleural effusion, which is the larger of the 2, I do not know that draining them is going to give him much breathing relief. We will have him evaluated for home oxygen prior to discharge in case he would benefit from it once he gets home. (2) Small cell lung cancer Is this a current diagnosis for this admission?: Yes Plan: He recently finished a course of chemo during which a new drug was added. It has affected his appetite and his bowels and caused him to be extremely fatigued. Supportive care only at this point. - Time Time Spent with patient: 15-24 minutes
[2017-09-21] MEDS: NORMAL SALINE 1000 ML 1,000 ML IV PRN (03:14)
[2017-09-21] MEDS: ONDANSETRON HCL 8 MG TABLET PO SCH (05:23)
[2017-09-21] MEDS: ENOXAPARIN SODIUM INJ 80 MG/0.8 ML DISP.SYRIN SUBCUT SCH (09:45)
[2017-09-21] MEDS: FOLIC ACID 1 MG TABLET PO SCH (09:47)
[2017-09-21] MEDS: MULTIVITAMIN TABLET PO SCH (09:47)
[2017-09-21] MEDS: LANSOPRAZOLE 30 MG TAB.RAP.DR PO SCH (09:47)
[2017-09-21] MEDS: DEXAMETHASONE 4 MG TABLET PO SCH (09:47)
[2017-09-21 11:41] VITALS: BP 140/92
--- NOTE | 2017-09-21 17:21 | PDOC DISCHARGE SUMMARY ---
General - Admit/Disc Date/PCP Admission Date/Primary Care Provider: 09/18/17 16:04 ALEXANDER PINTO MD Discharge Date: 09/21/17 - Discharge Diagnosis (1) Bilateral pleural effusion Is this a current diagnosis for this admission?: Yes Summary: Small bilateral, with a loculated appearance on the right side. I do not think that draining them would have made his respiratory status any better because of the small size. (2) Small cell lung cancer Is this a current diagnosis for this admission?: Yes Summary: He will follow with his oncologist as an outpatient. (3) Acute hypoxemic respiratory failure Is this a current diagnosis for this admission?: Yes Summary: He was about 86% during his 6 minute walk test. We got him set up for oxygen at home. I think it is a combination of his lung cancer, and possibly some combination of fatigue from the recent increase in his chemotherapy regimen. - Additional Information Discharge Diet: As Tolerated Discharge Activity: Balance Activity w/Rest, Supervised Activity Home Medications: Dexamethasone [Decadron 4 mg Tablet] 4 mg PO TID 09/18/17 Folic Acid 0.4 mg PO DAILY 09/18/17 Lorazepam [Ativan 0.5 mg Tablet] 0.5 mg PO Q8HP PRN 09/18/17 Multivitamin [Tab-A-Altaf] 1 each PO DAILY 09/18/17 Omeprazole 40 mg PO DAILY 09/18/17 Ondansetron HCl [Zofran 8 mg Tablet] 8 mg PO Q8 09/18/17 Oxycodone HCl/Acetaminophen [Percocet 10-325 mg Tablet] 1 each PO Q6HP PRN 09/18 Tramadol HCl [Ultram 50 mg Tablet] 50 mg PO Q8HP PRN 09/18/17 Enoxaparin Sodium [Lovenox Inj 80 mg/0.8 ml Disp.syrin] 80 mg SUBCUT Q12 disp.syrin 09/21/17 History of Present Illness History of Present Illness: STEVAN WHYTE is a 62 year old male with history of lung cancer status post chemotherapy, last dose about a week ago. Patient is also status post radiation therapy. He presented to the ED with about 1 week of malaise, anorexia. He states anything he eats runs through him. He has nausea, but no vomiting. His stools are loose but no blood. Denies sick contacts. Denies abdominal pain. He has also had problems with shortness of breath. Evaluation in the ED significant for acute renal failure, and bilateral pleural effusions worse on the right. ED doctor spoke to patient's oncologist who recommended admission for thoracentesis, further evaluation on Monday. Patient denies chest pain, no fever or chills. Hospital Course Hospital Course: His loose stools resolved without us doing much of anything. His chief issue was his fatigue and his dyspnea. He had 2 small pleural effusions, with the larger one on the right having a loculated appearance. Neither 1 of them was very big, and we did not feel that draining them would cause any substantial increase in his respiratory status. He was okay at rest but he would get very short of breath with exertion. Fatigue and dyspnea are both listed as adverse reactions to both the chemotherapy drugs that he is on, and he said his symptoms really started after of the Keytruda was started a couple weeks ago. We got him qualified for oxygen he was able to ambulate a little bit in the room without getting too short of breath. He said today was the best he has felt in weeks. He has follow-up arranged with his oncologist. His labs and examination were reassuring and he was discharged in good condition. Physical Exam Vital Signs: Temp Pulse Resp BP Pulse Ox 97.5 F 96 16 140/92 H 97 09/21/17 11:39 09/21/17 11:39 09/21/17 11:39 09/21/17 11:39 09/21/17 11:39 Intake & Output 09/20/17 09/21/17 09/22/17 06:59 06:59 06:59 Intake Total 3070 2856 656 Output Total 800 925 Balance 2270 1931 656 Weight 72.2 kg General appearance: PRESENT: no acute distress, cooperative, disheveled Respiratory exam: PRESENT: decreased breath sounds, unlabored. ABSENT: rales, rhonchi, tachypnea, wheezes Cardiovascular exam: PRESENT: RRR. ABSENT: systolic murmur GI/Abdominal exam: PRESENT: normal bowel sounds, soft. ABSENT: guarding, rebound, tenderness Extremities exam: ABSENT: clubbing, pedal edema Musculoskeletal exam: PRESENT: ambulatory, normal inspection. ABSENT: deformity Neurological exam: PRESENT: alert, awake, oriented to person, oriented to place , oriented to time Psychiatric exam: PRESENT: appropriate affect, normal mood Skin exam: PRESENT: dry, warm Results Laboratory Results: 09/19/17 03:59 09/19/17 07:00 Impressions: Acute Abdomen Series 09/18/17 14:02 IMPRESSION: Interval development of a large right effusion and smaller left effusion. Bilateral compressive atelectasis of the lungs. No radiographic evidence for acute abdominal disease. Chest CT 09/19/17 07:00 IMPRESSION: Known left lower lobe mass and satellite nodules. Interval development of bilateral pleural effusions with loculated components superiorly. Qualifiers - * PATIENT BEING DISCHARGED WITH ANY OF THE FOLLOWING DIAGNOSIS: No
== END 2017-09-21 12:26 | disposition home health service (06) | DRG 180 ==
LOC: ER 13:15 → EH 16:04 → 5 21:31
PROVIDERS: ADMIT Internal Medicine; ATTEND Internal Medicine
DX: C34.90 Malignant neoplasm of unspecified part of unspecified bronchus or lung (principal); J96.01 Acute respiratory failure with hypoxia; J91.8 Pleural effusion in other conditions classified elsewhere; N17.9 Acute kidney failure, unspecified; T45.1X5A Adverse effect of antineoplastic and immunosuppressive drugs, initial encounter; E86.0 Dehydration; R63.0 Anorexia; Z68.20 Body mass index [BMI] 20.0-20.9, adult; Z79.899 Other long term (current) drug therapy; Z87.891 Personal history of nicotine dependence
CPT/HCPCS: 36415; 71250; 74022; 80048; 80053; 80076; 81001; 83690; 85025; 85610; 87045; 87205; 87493; 93306; 94761; 99285; J1650; J3490; J7030; J7120; S0119